=== PATIENT | female | born 1950 | race Hispanic/Latino ===

== ENCOUNTER → 2023-04-01 | Day surgery (SDC) | payer MEDICARE ==
[2023-03-28 12:49] LABS: BASOPHILS % 0.3 % (0.0-1.0); EOSINOPHILS # (AUTO) 0.2 (0.0-0.4); EOSINOPHILS % 2.3 % (0.0-6.0); HEMATOCRIT 36.9 % (34.2-44.1); HEMOGLOBIN 12.4 g/dL (12.0-16.0); LYMPHOCYTES # (AUTO) 2.5 (1.0-3.2); LYMPHOCYTES % 36.2 % (18.0-39.1); MEAN CORPUSCULAR HEMOGLOBIN 31.2 pg (28-32); MEAN CORPUSCULAR HGB CONC 33.6 g/dL (31-35); MEAN CORPUSCULAR VOLUME 92.9 fL (81-99); MONOCYTES # (AUTO) 0.7 (0.2-0.8); MONOCYTES % 9.6 % (4.4-11.3); NEUTROPHILS # (AUTO) 3.6 (2.1-6.9); NEUTROPHILS % 51.5 % (38.7-80.0); PLATELET COUNT 254 x10e3/uL (140-360); RED BLOOD COUNT 3.97 x10e6/uL (3.6-5.1); RED CELL DISTRIBUTION WIDTH 12.8 % (11.7-14.4)
[~2023-04-01] MED LIST: ADVAIR 100-501 EACH INH; ALBUTEROL0.63 MG/3 NEB; ASPIRIN81 MG PO; CALCIUM PO; DILANTIN50 MG PO; FENTANYL CITRATE/PF 100MCG/2 ML INJ ONE; LACTATED RINGER'S 1,000 ML ONE; LEVOTHYROXINE112 MCG PO; LIDOCAINE HCL 2% LOCAL INJ 5 ML SDV VIAL INJ ONE; MATZIM LA180 MG PO; MELOXICAM7.5 MG PO; MONTELUKAST SOD10 MG PO; ONDANSETRON ODT8 MG PO; PANTOPRAZOLE SO20 MG PO; POVIDONE IODINE 0.05% 0.05 % ML PO ONE; PROPOFOL IV EMULSION 10 MG/ML 20 ML VIAL ONE
[2023-04-01 14:42] VITALS: TEMP 98.2
[2023-04-01 15:15] VITALS: BP 134/72; PULSE 74; RESP 18; O2SAT 99
== END | disposition home or self-care (01) ==
LOC: OR 09:58
PROVIDERS: ATTEND Internal Medicine Gastroenterology
DX: K29.50 Unspecified chronic gastritis without bleeding (principal); K25.3 Acute gastric ulcer without hemorrhage or perforation; K44.9 Diaphragmatic hernia without obstruction or gangrene; K21.9 Gastro-esophageal reflux disease without esophagitis; K64.8 Other hemorrhoids; J45.909 Unspecified asthma, uncomplicated; E03.9 Hypothyroidism, unspecified; G40.909 Epilepsy, unspecified, not intractable, without status epilepticus; Z01.810 Encounter for preprocedural cardiovascular examination; Z01.812 Encounter for preprocedural laboratory examination; Z79.1 Long term (current) use of non-steroidal anti-inflammatories (NSAID); Z79.82 Long term (current) use of aspirin; Z79.899 Other long term (current) drug therapy
CPT/HCPCS: 36415; 43239; 45378; 85025; 88305; 88342; 93005; J2001; J2704; J3010; J7121

== ENCOUNTER 2023-04-25 06:33 | Observation (INO) | payer MEDICARE, OTHER ==
[~2023-04-25] VITALS: Ht 157.5 cm; Wt 63.0 kg
[~2023-04-25 06:33] MED LIST changes: -FENTANYL CITRATE/PF 100MCG/2 ML INJ ONE; -LACTATED RINGER'S 1,000 ML ONE; -LIDOCAINE HCL 2% LOCAL INJ 5 ML SDV VIAL INJ ONE; -POVIDONE IODINE 0.05% 0.05 % ML PO ONE; -PROPOFOL IV EMULSION 10 MG/ML 20 ML VIAL ONE; +SODIUM CHLORIDE 0.9% 500ML 500 ML ONE; +TRANEXAMIC ACID 20 ML ONE; +Vancomycin IV 1,000 MG ONE
[2023-04-25] MEDS ORDERED: ROPIVACAINE 246.25 MG, EPINEPHRINE HCL 1:1000 1ML 0.5 MG, CLONIDINE HCL 0.08 MG, KETORO... INJ ONE ×5 (06:45)
[2023-04-25] MEDS ORDERED: GABAPENTIN 300 MG CAP ONE (07:29)
[2023-04-25] MEDS ORDERED: CELECOXIB 200 MG CAP ONE (07:29)
[2023-04-25] MEDS ORDERED: DEXAMETHASONE SOD PHOS 10 MG/1 ML VIAL ONE ×2 (07:29→13:44)
[2023-04-25] MEDS ORDERED: LACTATED RINGER'S 1,000 ML ONE (07:30)
[2023-04-25] MEDS ORDERED: CEFAZOLIN SODIUM 2 GM ONE (07:30)
[2023-04-25] MEDS ORDERED: HYDROMORPHONE 1MG/1ML INJ ONE (08:36)
[2023-04-25] MEDS ORDERED: DIPHENHYDRAMINE HCL INJ 50 MG/ML VIAL IV PRN (10:30)
[2023-04-25] MEDS ORDERED: HYDROCODONE/APAP 7.5MG-325MG 1 EA TAB PO PRN (10:30)
[2023-04-25] MEDS ORDERED: ONDANSETRON HCL INJ 2MG/ML 2ML 2 MG/ML VIAL IV PRN (10:30)
[2023-04-25] MEDS ORDERED: DOCUSATE SODIUM 100 MG CAP PO PRN (10:30)
[2023-04-25] MEDS: SODIUM CHLORIDE 0.9% 1000ML 1,000 ML IV SCH ×2 (10:30→20:30)
[2023-04-25] MEDS ORDERED: HYDROCODONE/APAP 5MG-325MG TAB PO PRN (10:30)
[2023-04-25] MEDS ORDERED: HYDROCODONE/APAP 7.5MG-325MG 1 EA TAB ONE (11:38)
[2023-04-25] MEDS ORDERED: KETOROLAC TROMETHAMINE 30 MG/ML VIAL ONE (12:45)
[2023-04-25] MEDS ORDERED: ROCURONIUM BROMIDE 10 MG/ML 5ML VIAL IV ONE (12:45)
[2023-04-25] MEDS ORDERED: POVIDONE IODINE 0.05% 0.05 % ML PO ONE (12:45)
[2023-04-25] MEDS ORDERED: DEXAMETHASONE SOD PHOS INJ 4 MG/ML SDV ONE (12:45)
[2023-04-25] MEDS ORDERED: PROPOFOL IV EMULSION 10 MG/ML 20 ML VIAL ONE (12:45)
[2023-04-25] MEDS ORDERED: ONDANSETRON HCL INJ 2MG/ML 2ML 2 MG/ML VIAL ONE ×2 (12:45→15:19)
[2023-04-25] MEDS ORDERED: SEVOFLURANE INHAL SOLN 250 ML PEN BTL ONE (12:45)
[2023-04-25] MEDS ORDERED: LIDOCAINE HCL 2% LOCAL INJ 5 ML SDV VIAL INJ ONE (12:45)
[2023-04-25] MEDS ORDERED: ROPIVACAINE 0.5% 5 MG/ML 30 ML SDV ONE (13:44)
[2023-04-25] MEDS ORDERED: MIDAZOLAM HCL 2 MG/2 ML VIAL ONE (13:59)
[2023-04-25] MEDS ORDERED: FENTANYL CITRATE/PF 100MCG/2 ML INJ ONE (13:59)
[2023-04-25] MEDS ORDERED: ONDANSETRON HCL INJ 2MG/ML 2ML 2 MG/ML VIAL IV ONE (15:18)
[2023-04-25 17:00] VITALS: BP 108/56; PULSE 71; RESP 15; TEMP 98; O2SAT 96
[2023-04-25 17:16] VITALS: BP 107/54; PULSE 82; RESP 14; TEMP 98; O2SAT 100
[2023-04-25] MEDS ORDERED: ACETAMINOPHEN 1000 MG/100 ML IV PRN (18:00)
[2023-04-25] MEDS: CELECOXIB 100 MG CAP PO SCH (18:41)
[2023-04-25] MEDS: ASPIRIN 325 MG TAB PO SCH (18:42)
[2023-04-25 20:00] VITALS: BP 124/69; PULSE 80; RESP 18; TEMP 98.8; O2SAT 96
[2023-04-25 21:19] VITALS: BP 124/69; PULSE 80; RESP 18; TEMP 98.8; O2SAT 96
[2023-04-26] VITALS (7 sets, daily range): BP systolic 100–122; BP diastolic 44–62; PULSE 65–82; RESP 16–18; TEMP 97.7–99.1; O2SAT 94–100
[2023-04-26] MEDS: CELECOXIB 100 MG CAP PO SCH ×2 (08:57→16:24)
[2023-04-26] MEDS: ASPIRIN 325 MG TAB PO SCH ×2 (08:57→16:24)
[2023-04-26] MEDS ORDERED: ONDANSETRON HCL 4 MG ORAL DISINTEGRATING TAB PO PRN (11:30)
[2023-04-26] MEDS ORDERED: ASPIRIN81 MG PO (11:46)
[2023-04-27] MEDS ORDERED: ASPIRIN 81 MG CHEW TAB PO ONE (00:15)
[2023-04-27] MEDS ORDERED: DIGOXIN INJ 0.25 MG/ML 2 ML AMP IV ONE (00:45)
[2023-04-27 01:09] LABS: BASOPHILS % 0.1 % (0.0-1.0); EOSINOPHILS # (AUTO) 0.1 (0.0-0.4); EOSINOPHILS % 0.9 % (0.0-6.0); HEMATOCRIT 34.3 % (34.2-44.1); HEMOGLOBIN 11.7 g/dL (12.0-16.0); LYMPHOCYTES # (AUTO) 2.5 (1.0-3.2); LYMPHOCYTES % 25.6 % (18.0-39.1); MEAN CORPUSCULAR HEMOGLOBIN 31.2 pg (28-32); MEAN CORPUSCULAR HGB CONC 34.1 g/dL (31-35); MEAN CORPUSCULAR VOLUME 91.5 fL (81-99); MONOCYTES # (AUTO) 1.2 (0.2-0.8); MONOCYTES % 12.6 % (4.4-11.3); NEUTROPHILS # (AUTO) 5.8 (2.1-6.9); NEUTROPHILS % 60.5 % (38.7-80.0); PLATELET COUNT 252 x10e3/uL (140-360); RED BLOOD COUNT 3.75 x10e6/uL (3.6-5.1); RED CELL DISTRIBUTION WIDTH 13.3 % (11.7-14.4)
[2023-04-27 01:24] VITALS: BP 118/68; PULSE 110; RESP 18; TEMP 97.3; O2SAT 97
[2023-04-27 01:24] LABS: ANION GAP 15.4 mmol/L (8-16); CALCIUM 8.7 mg/dL (8.4-10.2); CREATININE, SERUM 0.69 mg/dL (0.57-1.11); POTASSIUM 3.4 mmol/L (3.5-5.1)
[2023-04-27 05:31] VITALS: BP 106/62; PULSE 84; RESP 16; TEMP 97.9; O2SAT 98
[2023-04-27 08:22] VITALS: BP 120/59; PULSE 73; RESP 17; TEMP 97.9; O2SAT 99
[2023-04-27 08:35] VITALS: BP 120/59; PULSE 73; RESP 17; TEMP 97.9; O2SAT 99
[2023-04-27] MEDS: ASPIRIN 325 MG TAB PO SCH (08:39)
[2023-04-27] MEDS: CELECOXIB 100 MG CAP PO SCH (08:40)
[2023-04-27] MEDS ORDERED: MAGNESIUM OXIDE 400 MG TAB PO SCH (10:00)
[2023-04-27] MEDS ORDERED: DILTIAZEM HCL ER 120 MG CAP PO ONE (10:00)
[2023-04-27] MEDS ORDERED: POTASSIUM CHLORIDE 10MEQ EA PO ONE (10:00)
[2023-04-27 12:45] VITALS: BP 105/66; PULSE 75; RESP 16; TEMP 97.7; O2SAT 100
== END 2023-04-27 13:22 | disposition home or self-care (01) ==
LOC: OR 06:33 → PACU V 10:27 → MED/SURG 17:10
PROVIDERS: ADMIT Specialist; ATTEND Specialist
DX: M16.11 Unilateral primary osteoarthritis, right hip (principal); M17.11 Unilateral primary osteoarthritis, right knee; I10 Essential (primary) hypertension; E03.9 Hypothyroidism, unspecified; Z79.899 Other long term (current) drug therapy; I48.91 Unspecified atrial fibrillation; J45.909 Unspecified asthma, uncomplicated
CPT/HCPCS: 27130; 36415; 72170; 80048; 82550; 83735; 84484; 85025; 93005; 94799; 97110; 97116 ×2; 97161; 97530 ×3; C1713; C1776 ×3; G0378 ×3; J0171; J0690 ×2; J1100 ×2; J1170; J1885; J2001; J2250; J2405; J2704; J2795; J3010; J3370; J7040; J7121; Q0162; J1160

== ENCOUNTER 2023-09-01 23:15 | Inpatient (IN) | payer MEDICARE, OTHER ==
[~2023-09-01] VITALS: Ht 157.5 cm; Wt 63.0 kg
[~2023-09-01 23:15] MED LIST changes: +CYCLOBENZAPRINE5 MG PO; -SODIUM CHLORIDE 0.9% 500ML 500 ML ONE; -TRANEXAMIC ACID 20 ML ONE; -Vancomycin IV 1,000 MG ONE
[2023-09-01] MEDS ORDERED: ONDANSETRON HCL INJ 2MG/ML 2ML 2 MG/ML VIAL IV STA (23:27)
[2023-09-01] MEDS ORDERED: SODIUM CHLORIDE 0.9% 1000ML 1,000 ML IV ONE (23:30)
[2023-09-01 23:59] LABS: BASOPHILS % 0.1 % (0.0-1.0); EOSINOPHILS % 0.2 % (0.0-6.0); HEMATOCRIT 36.1 % (34.2-44.1); HEMOGLOBIN 12.1 g/dL (12.0-16.0); LYMPHOCYTES # (AUTO) 0.5 (1.0-3.2); MEAN CORPUSCULAR HEMOGLOBIN 28.3 pg (28-32); MEAN CORPUSCULAR HGB CONC 33.5 g/dL (31-35); MEAN CORPUSCULAR VOLUME 84.5 fL (81-99); MONOCYTES # (AUTO) 1.1 (0.2-0.8); MONOCYTES % 5.9 % (4.4-11.3); NEUTROPHILS # (AUTO) 16.3 (2.1-6.9); NEUTROPHILS % 90.5 % (38.7-80.0); PLATELET COUNT 272 x10e3/uL (140-360); RED BLOOD COUNT 4.27 x10e6/uL (3.6-5.1); RED CELL DISTRIBUTION WIDTH 13.9 % (11.7-14.4); WHITE BLOOD COUNT 18.04 x10e3/uL (4.8-10.8)
[2023-09-02] VITALS (9 sets, daily range): BP systolic 105–127; BP diastolic 55–69; PULSE 79–109; RESP 16–21; TEMP 98.4–99.7; O2SAT 96–100
[2023-09-02 00:02] LABS: CLARITY,URINE CLOUDY (CLEAR); COLOR,URINE YELLOW (YELLOW); KETONES,URINE 1+ (NEGATIVE); LEUKOCYTE ESTERASE ,URINE NEGATIVE (NEGATIVE); NITRITE,URINE NEGATIVE (NEGATIVE); PROTEIN,URINE DIPSTICK 2+ (NEGATIVE); URINE UROBILINOGEN 0.2 mg/dL (0.2 - 1)
[2023-09-02 00:16] LABS: ANION GAP 19.4 mmol/L (8-16); CALCIUM 9.5 mg/dL (8.4-10.2); CREATININE, SERUM 0.84 mg/dL (0.57-1.11)
[2023-09-02 00:19] LABS: POTASSIUM 2.4 mmol/L (3.5-5.1)
[2023-09-02] MEDS ORDERED: POTASSIUM CHLORIDE 20MEQ/100ML 100 ML IV STA ×3 (00:19→04:53)
[2023-09-02 00:23] LABS: BACTERIA,URINE MANY /HPF; CALCIUM OXALATE CRYSTALS,UR MODERATE (FEW); EPITHELIAL CELLS,URINE MODERATE /LPF; MUCUS,URINE MODERATE (RARE); TRANSITIONAL EPI CELLS,URINE FEW
[2023-09-02] MEDS ORDERED: IOPAMIDOL 370 MG/ML 100 ML INFUS..BTL INJ ONE (00:46)
[2023-09-02] MEDS ORDERED: SODIUM CHLORIDE 0.9% 1000ML 1,000 ML ONE (00:59)
[2023-09-02] MEDS ORDERED: ACETAMINOPHEN 1000 MG/100 ML IV STA (01:29)
[2023-09-02] MEDS ORDERED: ACETAMINOPHEN 1000 MG/100 ML 100 ML IV ONE (01:34)
[2023-09-02] MEDS: METRONIDAZOLE 500MG/NS 100ML 100 ML IV SCH ×4 (01:45→16:45)
[2023-09-02] MEDS ORDERED: SODIUM CHLORIDE 0.9% 1000ML 1,000 ML IV SCH (01:45)
[2023-09-02] MEDS ORDERED: ONDANSETRON HCL INJ 2MG/ML 2ML 2 MG/ML VIAL IV PRN (03:30)
[2023-09-02] MEDS ORDERED: ACETAMINOPHEN 325 MG TAB PO PRN (05:30)
[2023-09-02 10:33] LABS: BASOPHILS % 0.1 % (0.0-1.0); HEMATOCRIT 29.8 % (34.2-44.1); HEMOGLOBIN 9.7 g/dL (12.0-16.0); LYMPHOCYTES # (AUTO) 0.5 (1.0-3.2); LYMPHOCYTES % 4.7 % (18.0-39.1); MEAN CORPUSCULAR HEMOGLOBIN 28.1 pg (28-32); MEAN CORPUSCULAR HGB CONC 32.6 g/dL (31-35); MEAN CORPUSCULAR VOLUME 86.4 fL (81-99); MONOCYTES # (AUTO) 0.4 (0.2-0.8); MONOCYTES % 3.9 % (4.4-11.3); NEUTROPHILS # (AUTO) 9.2 (2.1-6.9); PLATELET COUNT 204 x10e3/uL (140-360); RED BLOOD COUNT 3.45 x10e6/uL (3.6-5.1); RED CELL DISTRIBUTION WIDTH 14.3 % (11.7-14.4); WHITE BLOOD COUNT 10.07 x10e3/uL (4.8-10.8)
[2023-09-02 10:52] LABS: ANION GAP 12.8 mmol/L (8-16); CALCIUM 8.2 mg/dL (8.4-10.2); CREATININE, SERUM 0.65 mg/dL (0.57-1.11); MAGNESIUM 1.5 MG/DL (1.3-2.1); PHOSPHORUS 2.3 MG/DL (2.3-4.7)
[2023-09-02 11:32] LABS: POTASSIUM 2.8 mmol/L (3.5-5.1)
[2023-09-02] MEDS: KCL 20MEQ/.9 SOD CHL 1,000 ML IV SCH (11:35)
[2023-09-02] MEDS ORDERED: POTASSIUM CHLORIDE 20 MEQ TAB CR PO STA (11:44)
[2023-09-02] MEDS ORDERED: MAGNESIUM SULFATE 2GM/50ML 50 ML IV ONE (11:45)
[2023-09-02 12:55] LABS: % IRON SATURATION 24 % (15-50); IRON 77 ug/dL (50-170); TOTAL IRON BINDING CAPACITY 316 ug/dL (261-478); TRANSFERRIN 226 mg/dL (180-382)
[2023-09-02] MEDS ORDERED: POTASSIUM PHOSPHATE 30 MM in SODIUM CHLORIDE 0.9% 250ML 250 ML IV ONE (13:00)
[2023-09-02] MEDS ORDERED: POTASSIUM CHLORIDE 20 MEQ TAB CR PO ONE (13:45)
[2023-09-02] MEDS: PHENYTOIN 50 MG TAB PO SCH ×2 (16:45→21:30)
[2023-09-03] VITALS (9 sets, daily range): BP systolic 108–125; BP diastolic 49–92; PULSE 57–77; RESP 17–18; TEMP 98–99.2; O2SAT 96–99
[2023-09-03] MEDS: METRONIDAZOLE 500MG/NS 100ML 100 ML IV SCH ×5 (01:35→23:30)
[2023-09-03] MEDS: KCL 20MEQ/.9 SOD CHL 1,000 ML IV SCH ×3 (01:46→16:32)
[2023-09-03] MEDS ORDERED: CYANOCOBALAMIN INJ 1,000 MCG/ML VIAL IM ONE (02:00)
[2023-09-03] MEDS: LEVOTHYROXINE SODIUM 75 MCG TAB PO SCH (06:13)
[2023-09-03 06:41] LABS: BASOPHILS % 0.3 % (0.0-1.0); EOSINOPHILS # (AUTO) 0.2 (0.0-0.4); HEMATOCRIT 30.2 % (34.2-44.1); HEMOGLOBIN 9.8 g/dL (12.0-16.0); LYMPHOCYTES % 25.9 % (18.0-39.1); MEAN CORPUSCULAR HEMOGLOBIN 28.4 pg (28-32); MEAN CORPUSCULAR HGB CONC 32.5 g/dL (31-35); MEAN CORPUSCULAR VOLUME 87.5 fL (81-99); MONOCYTES # (AUTO) 0.7 (0.2-0.8); NEUTROPHILS # (AUTO) 1.9 (2.1-6.9); NEUTROPHILS % 51.3 % (38.7-80.0); PLATELET COUNT 207 x10e3/uL (140-360); RED BLOOD COUNT 3.45 x10e6/uL (3.6-5.1); RED CELL DISTRIBUTION WIDTH 14.4 % (11.7-14.4); WHITE BLOOD COUNT 3.78 x10e3/uL (4.8-10.8)
[2023-09-03 07:44] LABS: ALANINE AMINOTRANSFERASE 14 IU/L (0-55); ALKALINE PHOSPHATASE 81 IU/L (40-150); ANION GAP 9.4 mmol/L (8-16); BLOOD UREA NITROGEN < 5 mg/dL (7-26); CALCIUM 7.9 mg/dL (8.4-10.2); CARBON DIOXIDE 18 mmol/L (22-29); CHLORIDE 117 mmol/L (98-107); CREATININE, SERUM 0.54 mg/dL (0.57-1.11); POTASSIUM 3.4 mmol/L (3.5-5.1); SODIUM 141 mmol/L (136-145)
[2023-09-03 07:53] LABS: BUN/CREATININE RATIO 9 (6-25)
[2023-09-03] MEDS: PHENYTOIN 50 MG TAB PO SCH ×3 (08:36→20:59)
[2023-09-03] MEDS: CYANOCOBALAMIN INJ 1,000 MCG/ML VIAL IM SCH (08:36)
[2023-09-03] MEDS: MONTELUKAST SODIUM 10 MG TAB PO SCH (08:37)
[2023-09-04] MEDS: KCL 20MEQ/.9 SOD CHL 1,000 ML IV SCH (03:05)
[2023-09-04 04:20] VITALS: BP 125/63; PULSE 62; RESP 18; TEMP 98.3
[2023-09-04] MEDS: LEVOTHYROXINE SODIUM 75 MCG TAB PO SCH (05:23)
[2023-09-04] MEDS: METRONIDAZOLE 500MG/NS 100ML 100 ML IV SCH (05:24)
[2023-09-04 07:50] VITALS: BP 123/69; PULSE 68; RESP 18; TEMP 98; O2SAT 98
[2023-09-04 08:22] VITALS: BP 123/69; PULSE 64; RESP 18; TEMP 98; O2SAT 98
[2023-09-04] MEDS: PHENYTOIN 50 MG TAB PO SCH (09:12)
[2023-09-04] MEDS: MONTELUKAST SODIUM 10 MG TAB PO SCH (09:12)
[2023-09-04] MEDS: CYANOCOBALAMIN INJ 1,000 MCG/ML VIAL IM SCH (09:12)
== END 2023-09-04 11:57 | disposition home or self-care (01) | DRG 872 ==
LOC: ER 23:20 → ERHOLD 09-02 01:36 → MED/SURG3 09-02 04:00
PROVIDERS: ADMIT Internal Medicine; ATTEND Internal Medicine
DX: A41.9 Sepsis, unspecified organism (principal); N39.0 Urinary tract infection, site not specified; R65.20 Severe sepsis without septic shock; K52.9 Noninfective gastroenteritis and colitis, unspecified; E53.8 Deficiency of other specified B group vitamins; D72.829 Elevated white blood cell count, unspecified; D72.819 Decreased white blood cell count, unspecified; E03.9 Hypothyroidism, unspecified; G40.909 Epilepsy, unspecified, not intractable, without status epilepticus; Z96.641 Presence of right artificial hip joint; I10 Essential (primary) hypertension; K21.9 Gastro-esophageal reflux disease without esophagitis; J45.909 Unspecified asthma, uncomplicated; M19.90 Unspecified osteoarthritis, unspecified site; E78.5 Hyperlipidemia, unspecified; Z90.49 Acquired absence of other specified parts of digestive tract; Z82.49 Family history of ischemic heart disease and other diseases of the circulatory system; Z79.82 Long term (current) use of aspirin; Z79.890 Hormone replacement therapy; Z79.899 Other long term (current) drug therapy; Z95.810 Presence of automatic (implantable) cardiac defibrillator; Z20.822 Contact with and (suspected) exposure to COVID-19
CPT/HCPCS: 0223U; 36415; 74177; 80048; 80053; 81001; 82607; 82746; 83540; 83605; 83690; 83735; 84100; 84466; 85025; 87040; 87086; 87324; 87449; 94799; 99284; J0696; J2405; J3420; J3475; J3480; J7030; J7050; Q9967

== ENCOUNTER 2023-09-06 15:11 | Emergency (ER) | payer OTHER, MEDICARE ==
[~2023-09-06] VITALS: Ht 157.5 cm; Wt 63.0 kg
[2023-09-06] MEDS ORDERED: HYDROCODONE/APAP 5MG-325MG TAB PO ONE (15:30)
[2023-09-06] MEDS ORDERED: ONDANSETRON HCL INJ 2MG/ML 2ML 2 MG/ML VIAL IV STA (15:55)
[2023-09-06] MEDS ORDERED: SODIUM CHLORIDE 0.9% 1000ML 1,000 ML IV ONE (16:00)
[2023-09-06] MEDS ORDERED: PROPOFOL IV EMULSION 10 MG/ML 20 ML VIAL IV ONE (16:00)
[2023-09-06 16:37] VITALS: PULSE 82; RESP 18; O2SAT 99
== END 2023-09-06 18:25 | disposition home or self-care (01) ==
LOC: ER 15:18
DX: T84.020A Dislocation of internal right hip prosthesis, initial encounter (principal); X50.1XXA Overexertion from prolonged static or awkward postures, initial encounter; Y92.89 Other specified places as the place of occurrence of the external cause; I10 Essential (primary) hypertension; E78.5 Hyperlipidemia, unspecified; J45.909 Unspecified asthma, uncomplicated; G40.909 Epilepsy, unspecified, not intractable, without status epilepticus; K21.9 Gastro-esophageal reflux disease without esophagitis; Z95.810 Presence of automatic (implantable) cardiac defibrillator
CPT/HCPCS: 27266; 73501; 73502; 94799; 99285; J2405; J2704; J7030